=== PATIENT | female | born 1980 | race Caucasian/White ===

== ENCOUNTER 2017-06-06 20:39 | Emergency (ER) | payer SELFPAY ==
[~2017-06-06] VITALS: Ht 160 cm; Wt 52.2 kg
[2017-06-06 20:50] VITALS: BP 122/63
[2017-06-06] MEDS ORDERED: Sodium Chloride 500ML 500 ML IV ONE (21:05)
[2017-06-06] MEDS ORDERED: LORazepam Inj 2mg/ml 1ml IV ONE (21:15)
[2017-06-06] MEDS ORDERED: LORazepam 1mg tab ORAL ONE (22:00)
[2017-06-06 22:25] VITALS: BP 133/83
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
--- NOTE | 2017-06-07 09:29 | Diagnostic Imaging Report ---
Indication: Chest pain Comparison: None Findings: Single view of the chest shows a normal cardiomediastinal silhouette. Pulmonary vasculature is normal. Lung are clear. Soft tissues and osseous structures are within normal limits. Impression: Normal chest
--- NOTE | 2017-06-14 15:54 | Cardiology Report ---
APPROVED REPORT EKG Measurement Heart [id number] 132P70 [id number] Normal sinus rhythm with sinus arrhythmia Normal ECG
--- NOTE | 2017-06-14 15:54 | Cardiology Report ---
APPROVED REPORT EKG Measurement Heart [id number] 132P70 [id number] Normal sinus rhythm with sinus arrhythmia Normal ECG
--- NOTE | 2017-06-14 15:54 | Cardiology Report ---
APPROVED REPORT EKG Measurement Heart [id number] 132P70 [id number] Normal sinus rhythm with sinus arrhythmia Normal ECG
== END 2017-06-06 22:25 | disposition left against medical advice (07) ==
LOC: EMR 21:21
DX: R07.89 Other chest pain (principal); F41.9 Anxiety disorder, unspecified; Z04.71 Encounter for examination and observation following alleged adult physical abuse
CPT/HCPCS: 71010; 93005; 99283